=== PATIENT | male | born 1955 | race Caucasian/White ===

== ENCOUNTER 2019-03-17 06:36 | Inpatient (IN) | payer MEDICARE, MEDICAID ==
[2019-03-17] VITALS (14 sets, daily range): BP systolic 107–163; BP diastolic 75–100; BMI 16.1
[~2019-03-17] VITALS: Ht 177.8 cm; Wt 52.1 kg
--- NOTE | 2019-03-17 07:02 | NUR ---
PT TO RADIOLOGY DEPT
--- NOTE | 2019-03-17 07:07 | NUR ---
RADIOLOGY CALLED THE ED AND REQUESTED A NURSE BECAUSE THE PATIENT IS SEIZING. NOTIFIED IMMEDIATELY. HE GAVE A VERBAL ORDER FOR ATIVAN.
--- NOTE | 2019-03-17 07:11 | NUR ---
PT FOUND IN HOSPITAL BED CONFUSED AND GRABBING AT THINGS. PT THEN STARTED HAVING WHAT APPEARED TO BE SEIZURE TYPE ACTIVING IN HIS LEFT EXTREMITIES. PT WAS GIVEN 2MG ATIVAN IV. PT RESPONDED WELL TO THE MEDICATIONS. NURSE STAYED WITH THE PT THROUGHOUT RADIOLOGY TEST AND THEN BACK TO THE ED.
[2019-03-17 07:40] LABS: UDS - AMPHET NEGATIVE QUAL (NEGATIVE); UDS - BARB NEGATIVE QUAL (NEGATIVE); UDS - BENZO NEGATIVE QUAL (NEGATIVE); UDS - COCAINE NEGATIVE QUAL (NEGATIVE); UDS - OPIATE NEGATIVE QUAL (NEGATIVE); UDS - PCP NEGATIVE QUAL (NEGATIVE); UDS - THC NEGATIVE QUAL (NEGATIVE)
[2019-03-17 08:05] LABS: CALC OSMOLALITY 280 mosm/kg (275-300); CALCIUM 8.9 mg/dL (8.5-10.1); CARBON DIOXIDE 20.2 mmol/L (21.0-32.0); CHLORIDE - SERUM 104 mmol/L (98-107); CREATININE - SERUM 1.2 mg/dL (0.6-1.3); GLUCOSE 115 mg/dL (74-106); POTASSIUM - SERUM 4.3 mmol/L (3.5-5.1); SODIUM 141 mmol/L (136-145); UREA NITROGEN 11 mg/dL (7-18); eGFR NON AFRICAN AMERICAN 65 mL/min (90-120)
[2019-03-17 08:15] LABS: APPEARANCE CLEAR (CLEAR); BACTERIA FEW /hpf (NEGATIVE); BILIRUBIN NEGATIVE (NEGATIVE); COLOR YELLOW (YELLOW); EPITHELIAL CELLS 0-5 /hpf (0-5); GLUCOSE 50 mg/dL (NEGATIVE); KETONE SMALL mg/dL (NEGATIVE); MUCUS <1+ /lpf (NONE SEEN); NITRITE NEGATIVE (NEGATIVE); PROTEIN 1+ mg/dL (NEGATIVE); SPECIFIC GRAVITY 1.015 (1.005-1.020); UROBILINOGEN NORMAL (NORMAL); WHITE CELLS - URINE RARE /hpf (NEGATIVE)
[2019-03-17 08:23] LABS: ALKALINE PHOSPHATASE 84 U/L (46-116); ALT (SGPT) 32 U/L (10-68); BILIRUBIN - TOTAL 0.45 mg/dL (0.2-1.3); CKMB 1.7 U/L (0.0-3.6); CREATINE KINASE 118 UL (21-232); MAGNESIUM - SERUM 1.9 mg/dL (1.8-2.4); PROTEIN - SERUM 7.5 g/dL (6.4-8.2); THYROID STIMULATING HORMONE 1.39 uIU/mL (0.36-3.74)
[2019-03-17 08:24] LABS: TROPONIN-I < 0.017 ng/mL (0.000-0.060)
[2019-03-17 08:32] LABS: BASOPHILS 0.7 % (0-2); HEMATOCRIT 41.6 % (42.0-54.0); HEMOGLOBIN 13.4 g/dL (13.5-17.5); IMMATURE GRANULOCYTES 0.6 % (0-5); LYMPHOCYTES 10.7 % (15-50); MCH 34.4 pg (26.0-34.0); MCHC 32.2 g/dL (31.0-37.0); MCV 106.9 fL (80.0-100.0); MEAN PLATELET VOLUME 10.6 fL (7.4-10.4); MONOCYTES 6.3 % (2-11); NEUTROPHILS 79.7 % (40-80); PLATELET COUNT 73 10x3/uL (130-400); RBC 3.89 10x6/uL (4.20-6.10); RDW 12.2 % (11.5-14.5); WBC 12.2 10x3/uL (4.8-10.8)
[2019-03-17 09:34] LABS: APTT 27.4 SECONDS (22.8-39.4); INR 0.96 (0.85-1.17); PROTIME 12.3 SECONDS (11.6-15.0)
[2019-03-17] MEDS ORDERED: LIPITOR40 MG PO (10:49)
[2019-03-17] MEDS ORDERED: PLAVIX75 MG PO (10:49)
[2019-03-17] MEDS ORDERED: LIPITOR20 MG PO (10:49)
[2019-03-17] MEDS ORDERED: NORVASC5 MG PO (10:49)
[2019-03-17] MEDS ORDERED: VITAMIN B-1250 MG PO (10:50)
[2019-03-17] MEDS ORDERED: SPIRIVA18 MCG INH (10:50)
[2019-03-17] MEDS ORDERED: BAYER CHEWABLE81 MG PO (10:50)
--- NOTE | 2019-03-17 11:50 | NUR ---
PATIENT CONFUSED. BM. LINEN CHANGE. BATH PROVIDED. TRAY PROVIDED.
--- NOTE | 2019-03-17 13:06 | NUR ---
PATIENT CONFUSED. LAYING IN BED RESTING. NO DISTRESS. WILL CONTINUE TO MONITOR.
--- NOTE | 2019-03-17 13:50 | NUR ---
dr ramos at bedside. udpate given.
--- NOTE | 2019-03-17 15:49 | NUR ---
PATIENT IS ATTEMPTING TO LEAVE AMA. PATIENT IS NOT ORIENTED. CONFUSED. GEODON GIVEN.
--- NOTE | 2019-03-17 17:06 | NUR ---
LINEN CHANGE AND CHG BATH GIVEN AGAIN AT THIS TIME. PATIENT HAD A BM
--- NOTE | 2019-03-17 19:00 | NUR ---
REPORT RECEIVED, PT DISORIENTED TO PLACE, TIME, AND SITUATION. CALM AND COOPERATIVE AT THIS TIME, ABLE TO COMMUNICATE APPROPRIATELY. REORIENTED NEEDED. NO ACUTE DISTRESS NOTED AT THIS TIME. ASSESSMENT COMPLETED, SEE FLOWSHEET. WILL CONTINUE TO MONITOR.
--- NOTE | 2019-03-17 21:00 | NUR ---
PT RESTING IN BED, DISORIENTED TO PLACE, TIME AND SITUATION. NO ACUTE DISTRESS NOTED.
--- NOTE | 2019-03-17 23:00 | NUR ---
PT RESTING IN BED, CONFUSED TO PLACE, TIME, SITUATION. WILL CONTINUE TO MONITOR.
[2019-03-18] VITALS (17 sets, daily range): BP systolic 109–191; BP diastolic 78–127; Ht 177.8 cm; Wt 52.1 kg
--- NOTE | 2019-03-18 01:00 | NUR ---
PT RESTING IN BED, NO CHANGES IN PREVIOUS STATUS. WILL CONTINUE TO MONITOR.
--- NOTE | 2019-03-18 03:00 | NUR ---
PT CONFUSED, DISORIENTED TO PLACE, TIME, AND SITUATION. ATTEMPTED TO REORIENT. WILL CONTINUE TO MONITOR.
--- NOTE | 2019-03-18 05:00 | NUR ---
PT RESTING IN BED, CONFUSED AND DISORIENTED TO TIME, PLACE, AND SITUATION. WILL CONTINUE TO MONITOR.
--- NOTE | 2019-03-18 09:30 | NUR ---
PATIENT INDEPENDENTLY TURNS HIMSELF. ORAL CARE DONE. TRAY PROVIDED.
--- NOTE | 2019-03-18 09:59 | NUR ---
REPORT RECIEVED. ASSESSMENT DONE. VSS. BM. BEDSIDE COMMODE AT BEDSIDE. BELONGINGS WITHIN REACH. KEEP ASKING ABOUT HIS . CONFUSED. BED ALARM. NO DISTRESS. DENIES PAIN AND NEEDS. WILL CONTINUE TO MONITOR
--- NOTE | 2019-03-18 11:00 | NUR ---
DR DICKSON AT BEDSIDE.
--- NOTE | 2019-03-18 17:50 | NUR ---
LINEN CHANGE. CHG BATH.
--- NOTE | 2019-03-18 19:00 | NUR ---
BEDSIDE REPORT AND SHIFT ASSESSMENT COMPLETE, SEE FLOWSHEET. VSS, NO SIGNS OF ACUTE DISTRESS NOTED. PT ATTEMPTING TO GET OOB, ASSISTED TO BEDSIDE COMMODE. LG LIQUID BM. PT CONFUSED, KEEPS REPEATING SELF. ATTEMPTED TO REORIENT. PRN MEDS GIVEN PER MAR. CALL LIGHT IN REACH, BED IN LOW POSITION, BED ALARM ON. WILL CONTINUE TO MONITOR.
--- NOTE | 2019-03-18 20:00 | NUR ---
SPOKE WITH , UPDATE GIVEN.
--- NOTE | 2019-03-18 23:00 | NUR ---
PT SLEEPING. CALL LIGHT IN REACH, BED IN LOWEST POSITION.
--- NOTE | 2019-03-19 00:30 | NUR ---
OBSERVED GETTING OOB AND DRAGGING BEDSIDE COMMODE AROUND ROOM. LG LIQUID BM NOTED, PT CLEANED UP THEN ASSISTED BACK TO BED.
[2019-03-19 03:00] VITALS: BP 132/89
[2019-03-19 07:00] VITALS: BP 167/102
--- NOTE | 2019-03-19 07:16 | NUR ---
PT RESTING IN BED, UNABLE TO STATE YEAR AND PLACE. ORIENTED TO SELF. SHIFT ASSESSMENT PERFORMED. BED ALARM ON AND TESTED. WILL CONT TO FOLLOW POC
--- NOTE | 2019-03-19 08:52 | NUR ---
Nutrition follow-up: Pt remains on a full liquid diet Labs reviewed Wt: 110# Pt with banana bag infusing @ 125 cc/hr Recommend advancing diet to regular as tolerated RDN will order Boost with meals. Following.
--- NOTE | 2019-03-19 09:30 | NUR ---
PT SAT UP IN BED AND DEMANDED THAT HE WAS LEAVING THE HOSPITAL RIGHT NOW. NURSE WAS UNABLE TO CALM PT AND HE BECAME INCREASINGLY AGGITATED. NURSE PAGED . ONCE NURSE RETURNED TO ROOM FROM PAGING PT WAS ASLEEP IN BED.
[2019-03-19 11:00] VITALS: BP 143/72
--- NOTE | 2019-03-19 12:15 | NUR ---
PT SAT UP IN BED AND STARTED YELLING THAT HE WAS GOING HOME AND THAT WE NEEDED TO CALL HIS TO COME GET HIM. NURSE CALMED PT AND PRN ATIVAN GIVEN ORDERED.
--- NOTE | 2019-03-19 13:00 | NUR ---
PIV TO LEFT FA INFILTRATED. PIV REMOVED WITH CATHETER TIP INTACT. WILL CONT TO FOLLOW POC
--- NOTE | 2019-03-19 13:07 | NUR ---
PT RESTING IN BED ASLEEP. BED ALARM ON. WILL CONT TO FOLLOW POC
--- NOTE | 2019-03-19 14:00 | NUR ---
PT PULLED OUT PIV TO RIGHT FA. CATHETER TIP INTACT. 20G PIV INSERTED X1 ATTEMPT TO PT RIGHT FA. PT TOLERATED WELL. WILL CONT TO FOLLOW POC
[2019-03-19 15:00] VITALS: BP 128/80
[2019-03-19 19:00] VITALS: BP 122/82
--- NOTE | 2019-03-19 19:04 | NUR ---
BEDSIDE SHIFT REPORT GIVEN BY DEPARTING RN. PT LAYING IN BED WITH EYES CLOSED. ORIENTED TO PERSON ONLY. ANXIOUS AND READY TO GO HOME. MENTIONED ANXIETY REGARDING POSSIBLE HOMELESSNESS? HOUSE SUPERFVISOR INFORMED. RT FA PIV INFUSING MD ORDERED MEDS WITHOUT DIFFICULTY. VSS. DENIES ANY PAIN OR NEEDS AT THIS TIME. SAFETY MEASURES IN PLACE. BED ALARM ON. CBIR.
--- NOTE | 2019-03-19 19:30 | NUR ---
PHONED TO GET PT UPDATE. NO SECURITY CODE FOUND. PT GAVE VERBAL CONSENT TO ANSWER ANY AND ALL QUESTIONS. ALL QUESTIONS ANSERED. VERBALIZES HER WISH TO SPEAK TO MD IN AM.
--- NOTE | 2019-03-19 19:57 | NUR ---
PHONED FOR SECOND TIME FOR PT UPDATE. PT AGAIN GAVE CONSENT. UPDATE GIVEN.
--- NOTE | 2019-03-19 21:23 | MORECARE ---
CASE MANAGEMENT DISCHARGE SUMMARY PATIENT: KWADWO JASSO UNIT: [id number] ADM DATE: 03/17/19 AGE: 63 : 57 SEX: M ROOM/BED: D.2301 AUTHOR: CHICA SY PHYSICIAN: REFERRING PHYSICIAN: AMINA DICKSON MD DATE OF SERVICE: 03/19/19 Discharge Plan Patient Name: KWADWO JASSO [facility] [facility] 1955 Planned Disposition: Home Anticipated Discharge Date: Discharge Date: Expected LOS: Initial Reviewer: [email or web address] Initial Review Date: 03/19/2019 Generated: 03/19/19 10:23 pm DCPIA - Discharge Planning Initial Assessment Updated by [email or web address]: Kathleen Sanders on 03/19/19 9:20 pm * How many steps to enter\exit or inside your home? * PCP MINDA BERNAL APN * [facility] * Preadmission Environment Home with Family * ADLs Independent * Equipment None * List name and contact numbers for known caregivers / representatives who currently or will assist patient after discharge: TOBIN JASSO - SPOUSE- [phone] * Verbal permission to speak to the caregivers and representatives has been obtained from the patient. Yes * Community resources currently utilized None * Additional services required to return to the preadmission environment? No * Can the patient safely return to the preadmission environment? Yes * Has this patient been hospitalized within the prior 30 days at any hospital? No Patient Name: KWADWO JASSO Page [id number] at 2123 All edits/amendments must be made on the electronic document DICTATION DATE: 03/19/192122 ANALYTICS LEAD: ANTONI 03/19/192122 RPT#: [id number] DC DATE: STATUS: ADM IN [facility] [address] [place] [address] END OF REPORT
--- NOTE | 2019-03-19 21:30 | MORECARE ---
CASE MANAGEMENT DISCHARGE SUMMARY PATIENT: KWADWO JASSO UNIT: [id number] ADM DATE: 03/17/19 AGE: 63 : 57 SEX: M ROOM/BED: D.2301 AUTHOR: [email or web address] PHYSICIAN: REFERRING PHYSICIAN: AMINA DICKSON MD DATE OF SERVICE: 03/19/19 Discharge Plan Patient Name: KWADWO JASSO Facility: [facility]:[place] : 1955 Planned Disposition: Home Anticipated Discharge Date: Discharge Date: Expected LOS: Initial Reviewer: [email or web address] Initial Review Date: 03/19/2019 Generated: 03/19/19 10:29 pm Comments DCP- Discharge Planning Updated by [email or web address]: Kathleen Sanders on 03/19/19 8:[address] Patient Name: KWADWO JASSO Admission Status: Elective Accout number: [id number] Admission Date: 03-17-2019 : 1955 Admission Diagnosis: Attending: AMINA DICKSON Current LOS: 2 Anticipated DC Date: Planned Disposition: Home Primary Insurance: [employer] CHOICE PPO MCR ADVANT Discharge Planning Comments: CM called and spoke with patient's Tobin Jasso [phone] with patient at bedside after explaining CM role and obtaining verbal consent. Patient lives at home with his Tobin where he is independent with his care and plans to return there upon discharge. Patient and spouse are currently staying with his mother in [place], [place]. (around [place]) CM was given a [address], [place] [address]. CM uncertain as to how patient was found here in [place] and spouse doesn't know how he got here either. Patient feels this would be a safe discharge. CM discussed availability / needs of home health and medical equipment. Patient denies any discharge needs at this time. Patient states he will have his family drive him home upon discharge. Spouse agrees to come pick him up when discharged. CM will continue to follow and assist as needed with discharge planning / needs. Requirements Manager: Kathleen Sanders DCPIA - Discharge Planning Initial Assessment Updated by [email or web address]: Kathleen Sanders on 03/19/19 9:20 pm * How many steps to enter\exit or inside your home? * PCP MINDA BERNAL APN * [facility]acy [facility] * Preadmission Environment Home with Family * ADLs Independent * Equipment None * List name and contact numbers for known caregivers / representatives who currently or will assist patient after discharge: TOBIN JASSO - SPOUSE- [phone] * Verbal permission to speak to the caregivers and representatives has been obtained from the patient. Yes * Community resources currently utilized None * Additional services required to return to the preadmission environment? No * Can the patient safely return to the preadmission environment? Yes * Has this patient been hospitalized within the prior 30 days at any hospital? No Last DP export: 03/19/19 8:23 p Patient Name: KWADWO JASSO Page [id number] at 2130 All edits/amendments must be made on the electronic document DICTATION DATE: 03/19/192128 GANG SAW OPERATOR: ANTONI 03/19/192128 RPT#: [id number] DC DATE: STATUS: ADM IN [facility] [address] [place] [address] END OF REPORT
--- NOTE | 2019-03-19 22:47 | NUR ---
LAYING IN BED ASLEEP. VSS. SHOWING NO SS OF DISTRESS AT THIS TIME. BED ALARM ON. ALL OTHER SAFETY MEASURES IN PLACE.
[2019-03-19 23:00] VITALS: BP 138/98
[2019-03-20 03:00] VITALS: BP 132/90
--- NOTE | 2019-03-20 03:45 | NUR ---
COMPLETE BED BATH GIVEN. LINENS CHANGED. HAIR SHAMPOOED. SNACK PROVIDED PER PT REQUEST. DENIES ANY PAIN OR NEEDS AT THIS TIME. VSS. BED ALARM ON.
[2019-03-20 04:01] LABS: BASOPHILS 0.8 % (0-2); HEMATOCRIT 35.9 % (42.0-54.0); HEMOGLOBIN 11.9 g/dL (13.5-17.5); IMMATURE GRANULOCYTES 0.1 % (0-5); LYMPHOCYTES 19.4 % (15-50); MCH 34.1 pg (26.0-34.0); MCHC 33.1 g/dL (31.0-37.0); MCV 102.9 fL (80.0-100.0); MEAN PLATELET VOLUME 10.2 fL (7.4-10.4); MONOCYTES 7.8 % (2-11); NEUTROPHILS 66.9 % (40-80); RBC 3.49 10x6/uL (4.20-6.10); RDW 11.9 % (11.5-14.5); WBC 7.4 10x3/uL (4.8-10.8)
[2019-03-20 04:33] LABS: PLATELET COUNT 232 10x3/uL (130-400)
[2019-03-20 04:51] LABS: ALBUMIN 2.9 g/dL (3.4-5.0); ALKALINE PHOSPHATASE 73 U/L (46-116); ALT (SGPT) 22 U/L (10-68); BILIRUBIN - TOTAL 0.32 mg/dL (0.2-1.3); CALC OSMOLALITY 282 mosm/kg (275-300); CALCIUM 7.9 mg/dL (8.5-10.1); CHLORIDE - SERUM 109 mmol/L (98-107); CREATININE - SERUM 0.6 mg/dL (0.6-1.3); GLUCOSE 95 mg/dL (74-106); POTASSIUM - SERUM 3.7 mmol/L (3.5-5.1); PROTEIN - SERUM 5.8 g/dL (6.4-8.2); SODIUM 143 mmol/L (136-145); UREA NITROGEN 7 mg/dL (7-18); eGFR NON AFRICAN AMERICAN > 90 mL/min (90-120)
[2019-03-20 07:00] VITALS: BP 143/89
--- NOTE | 2019-03-20 07:00 | NUR ---
REC'D REPORT AND RESUMED CARE, AWAKE AND CONFUSED, DENIES PAIN, O2 VIA ROOM AIR, VSS DENIES PAIN, SELF REPOSITIONES, CALL LIGHT IN REACH
--- NOTE | 2019-03-20 07:00 | NUR ---
REC'D REPORT AND RESUMED CARE, AWAKE AND CONFUSE, PULLIING AGAINST LINES, O2 VIA NC AT 4L, SAT 96%, OTHER VSS, DENIES PAIN, ASSESSMENT COMPLETED PER FLOWSHEET, VSS, REPOSITIONED TO LEFT SIDE ...NOTED ABDOMEN WITH ANDRE DRAINS X2 WITH SERO SANGUINESS DRAINAGE, EMPTIED 90 ON L AND 60 ON RIGHT, MIDLINE WOUND VAC DRESSING IN PLACE, CDI, LL ABDOMEN WITH COLOSTOMY, DRAINING LIQUID STOOL, CANTU TO GRAVITY WITH YELLOW CONENTRATE DRAINGE TO BAG, SCDS AMD WRIST RESTRAINTS ON B/L, WILL CONTINUE WIHT POC
--- NOTE | 2019-03-20 07:45 | NUR ---
BREAKFAST TRAY TO BEDSIDE, INDEPENDENT WITH SET UP AND EATING
--- NOTE | 2019-03-20 09:00 | NUR ---
MORNING MEDS GIVEN PER JUL FLOWHSHEET, TOLERATED WITHOUT DIFFICULTY
--- NOTE | 2019-03-20 09:00 | NUR ---
MORNING MEDS GIVEN PER MAR FLOWSHEET, HELD PO MEDS RE: NPO ORDER, RIGHT BETH NGT TO REMEDIOS
[2019-03-20 11:00] VITALS: BP 142/101
--- NOTE | 2019-03-20 11:00 | NUR ---
NO ACUTE CHANGE FROM PREVIOUS ASSESSMENT, WANTING TO GO HOME AWAITING DR. DICKSON
--- NOTE | 2019-03-20 11:00 | NUR ---
REASSESSMENT COMPLETED, NO ACUTE CHANGE FROM PREVIOUS ASSESSMENT
--- NOTE | 2019-03-20 13:30 | NUR ---
PULLED OFF OSTOMY BAG, STOOL LEAKING IN BEDS, SKINCARE AND LINEN CHANGE COMPLETED
[2019-03-20] MEDS ORDERED: CHRONULAC30 ML PO (14:08)
[2019-03-20] MEDS ORDERED: DILANTIN100 MG PO (14:09)
--- NOTE | 2019-03-20 14:15 | NUR ---
DR BARNETT HERE FOR EVAL, COUNSELLED WITH PATIENT RE: ETOH AND LIVER DISEASE, PATIENT FVERBLIZED UNDERSTANDING, PER DR DICKSON, WILL DISCHARGE HOME TODAY
--- NOTE | 2019-03-20 15:00 | NUR ---
DISCHARGING PATIENT, EXPLAINING DISCHARGE INSTRUCTIONS, STATES HE HAS MADE THE DECISION TO GO TO [facility] IF HE WANTS, AND HE IS NOT PLANNING TO GO FOR THE SMOKING COUNSELLING, NOT EASILY ENCOURAGED, STATES " I AND GOING TO ANYWAY"
--- NOTE | 2019-03-20 15:00 | NUR ---
NO ACUTE CHANGE FROM PERVIOUS ASSESSMENT, RESTING WITH NO SIGN OF DISTRESS, VSS
--- NOTE | 2019-03-20 16:00 | NUR ---
I AN O'S COMPLETED, AT BEDSIDE, STATUS UPDATED, VOICES NO NEEDS AT THIS TIME
--- NOTE | 2019-03-21 19:56 | MORECARE ---
CASE MANAGEMENT DISCHARGE SUMMARY PATIENT: KWADWO JASSO UNIT: [id number] ADM DATE: 03/17/19 AGE: 63 : 57 SEX: M ROOM/BED: D.2301 AUTHOR: CHICA SY PHYSICIAN: REFERRING PHYSICIAN: AMINA DICKSON MD DATE OF SERVICE: 03/21/19 Discharge Plan Patient Name: KWADWO JASSO Facility: [facility]:[place] : 1955 Planned Disposition: Home Anticipated Discharge Date: Discharge Date: 03/20/2019 Expected LOS: Initial Reviewer: [email or web address] Initial Review Date: 03/19/2019 Generated: 03/21/19 8:56 pm Comments DCP- Discharge Planning Updated by [email or web address]: Kathleen Sanders on 03/21/19 6:[address] LATE ENTRY 03/20/19 Patient Name: KWADWO JASSO Encounter No: [id number] : 1955 Primary Insurance: [employer] CHOICE PPO MCR ADVANT Anticipated DC Date: Planned Disposition: Home External Planned Provider: : D/C IMM SIGNED AND PT REFUSED HOME HEALTH SERVICES BLAIR SIGNED DCP follow-up note: Patient and family in agreement with discharge plan. No changes to plan. Case management will follow and assist as needed. Kathleen Sanders DCP- Discharge Planning Updated by [email or web address]: Kathleen Sanders on 03/19/19 8:[address] Patient Name: KWADWO JASSO Admission Status: Elective Accout number: [id number] Admission Date: 03-17-2019 : 1955 Admission Diagnosis: Attending: AMINA DICKSON Current LOS: 2 Anticipated DC Date: Planned Disposition: Home Primary Insurance: [employer] CHOICE PPO MCR ADVANT Discharge Planning Comments: CM called and spoke with patient's Tobin Jasso [phone] with patient at bedside after explaining CM role and obtaining verbal consent. Patient lives at home with his Tobin where he is independent with his care and plans to return there upon discharge. Patient and spouse are currently staying with his mother in [place], [place]. (around [place]) CM was given a [address], [place] [address]. CM uncertain as to how patient was found here in [place] and spouse doesn't know how he got here either. Patient feels this would be a safe discharge. CM discussed availability / needs of home health and medical equipment. Patient denies any discharge needs at this time. Patient states he will have his family drive him home upon discharge. Spouse agrees to come pick him up when discharged. CM will continue to follow and assist as needed with discharge planning / needs. Deaf/Hard Of Hearing Specialist: Kathleen PIERRE - Discharge Planning Initial Assessment Updated by [id number]: Kathleen Sanders on 03/19/19 9:20 pm * How many steps to enter\exit or inside your home? * PCP MIDNA BERNAL APN * [facility]acy [facility] * Preadmission Environment Home with Family * ADLs Independent * Equipment None * List name and contact numbers for known caregivers / representatives who currently or will assist patient after discharge: TOBIN JASSO - SPOUSE- [phone] * Verbal permission to speak to the caregivers and representatives has been obtained from the patient. Yes * Community resources currently utilized None * Additional services required to return to the preadmission environment? No * Can the patient safely return to the preadmission environment? Yes * Has this patient been hospitalized within the prior 30 days at any hospital? No Coverage Notice Reviewer: [email or web address] Harlan Sanders Notice Issued Date-Time: 03/20/2019 15:00 Notice Type: IM Discharge Notice Notice Delivered To: Patient Relationship to Patient: Self Shorts Sifter Name: Delivery Method: HAND - Hand Delivered Incky Days: Prior Verbal Notification: Recipient Understood Notice: Yes Recipient Signature: Yes Med Rec Note Co-signed by Attending: Coverage Notice Comment: Reviewer: [email or web address] Harlan Sanders Notice Issued Date-Time: 03/20/2019 15:00 Notice Type: Patient Choice Letter Notice Delivered To: Patient Relationship to Patient: Self Shorts Sifter Name: Delivery Method: HAND - Hand Delivered Nicky Days: Prior Verbal Notification: Recipient Understood Notice: Yes Recipient Signature: Yes Med Rec Note Co-signed by Attending: Coverage Notice Comment: REFUSED HH SERVICES AT THIS TIME Last DP export: 03/19/19 8:30 p Patient Name: KWADWO JASSO Page [id number] at 1955 All edits/amendments must be made on the electronic document DICTATION DATE: 03/21/191955 HRBP: ANTONI 03/21/191955 RPT#: [id number] DC DATE:03/20/19 STATUS: DIS IN [facility] [address] [place] [address] END OF REPORT
== END 2019-03-20 15:15 | disposition home or self-care (01) | DRG 100 ==
LOC: EDBD 06:36 → D.ER 06:36 → D.ICU 09:21
PROVIDERS: Family Medicine; ADMIT Internal Medicine Nephrology; ATTEND Internal Medicine Nephrology
DX: G40.89 Other seizures (principal); E43 Unspecified severe protein-calorie malnutrition; G92 Toxic encephalopathy; F10.239 Alcohol dependence with withdrawal, unspecified; I16.9 Hypertensive crisis, unspecified; Z68.1 Body mass index [BMI] 19.9 or less, adult; K70.30 Alcoholic cirrhosis of liver without ascites; D69.6 Thrombocytopenia, unspecified; D75.89 Other specified diseases of blood and blood-forming organs